=== PATIENT | female | born 1950 | race Caucasian/White ===

== ENCOUNTER 2023-09-29 14:47 | Outpatient (AMB) | payer OTHER, SELFPAY ==
--- NOTE | 2023-09-29 15:23 | MHC.OFFVIS ---
Intake Vital Signs 09/29/23 15:24 Height 5 ft 2 in Weight 181 lb BMI 33.1 BP 142/82 H Blood Pressure Location Lt brachial Position Sitting Respiration 15 Pulse 73 Pulse Source Pulse Oximeter Pulse Oximetry (%) 99 Oxygen Delivery Method Room Air Intake Visit Reasons: ENP-Headache - LVM Intake Note: Pt presents for new pt eval for headaches. Allergies lisinopril Allergy (Unknown, Verified 09/29/23 15:24) Anaphylaxis amlodipine Allergy (Intermediate, Uncoded 09/29/23 15:29) Swelling Medication List - Last Reconciled 09/29/23 by Nicole Howe, CLARA atorvastatin 20 mg PO DAILY clonidine 1 patch transdermal QWEEK levothyroxine 25 mcg PO DAILY magnesium oxide 400 mg PO BEDTIME 30 days melatonin 1 mg PO BEDTIME PRN nifedipine ER 30 mg PO DAILY pantoprazole 40 mg PO DAILY riboflavin (vitamin B2) 400 mg PO DAILY 30 days ubrogepant (Ubrelvy) 100 mg PO ONCE PRN 30 days MDD 200mg per day vit C,K-Jr-cdfkp-lutein-zeaxan 250-90-40-1 mg (PreserVision AREDS-2) 1 tab PO BID HPI HPI Comments History of Present Illness Details Right-handed 73-yr-old female presents for new pt evaluation of headache disorder, specifically worsening headache w/ visual aura. Pt is accompanied by her dtr. She states she has had headaches throughout her life. But has been having a new headache in the past couple of years w/o known precipitating cause. She feels she has 2 headaches- 1 that is d/t elevated BP which responds to her Clonidine patch and one that does not respond to anything . States these are different HAs but has difficulty differentiating the 2 HAs, other than the clonidine non-responsive MODI is a/w nausea and maybe is more severe. Headache questionnaire: Previous work-up? Head CT- no acute findings. Typical headache characteristics: Prodrome symptoms? none Aura? double vision, blurry vision, dark stars- not sure if occurs before or during the MODI. Lasts several minutes- varies a bit between HAs. Location, quality, characteristics? Throbbing, pressure pain holocranial- more so frontal, temples, retroorbital. Pain intensity? Moderate-Severe Associated symptoms? Photophobia, phonophobia, allodynia, nausea, dizziness, brain fog, activity intolerance. Focal weakness, Parethesias, Autonomic s/s? bilateral red watery eyes w/o weakness/facial droop. Postdrome? none Triggers? lack of sleep. weather changes Any positional, valsalva, exertional, sexual activity triggers? none Menstrual triggers? n/a Time of day? No specific time of day Duration? 1-2 days Frequency? 3-4 headache days per week How does headache impact your life? Cannot do her usual activities. Current acute medication use/interventions: Tylenol- ineffective Previous acute medication use: None Current preventative medication use: On Nifedipine Er 30mg for HTN, Clonidine patch helps the more moderate headaches Previous preventative medication use: None other Non-pharmacological interventions: Rest Other history of headache disorder? She does not remember what her headaches were like when she was younger. History of musculoskeletal disorders or injury? h/o back pain, neck pain/tightness History of concussion/head injury? none History of mood disorder? none History of sleep disorder? Can fall asleep, but then wakes up and cannot go back to sleep. May snore. History of respiratory disease? None History of CV disease? HTN, mild HLD, HF History of coagulopathy? None History of endocrine or metabolic disease? Hypothyroidism History of seizure? None History of /GI disorder? GERD. No current constipation. Has renal artery stenosis, h/o kidney stone. Exercise? doing cervical exercises everyday. Family planning? n/a Family history of migraine or other headache disorder? None PFSH Medical History (Updated 09/29/23 @ 21:18 by CLARA Waite) Constipation Bilateral carpal tunnel syndrome TTH (tension-type headache) Vitamin D deficiency Hypothyroidism Secondary hyperparathyroidism (of renal origin) Renal artery stenosis Renal cyst Osteopenia Mesenteric adenitis Medial epicondylitis of left elbow MDD (major depressive disorder) Lumbar radiculitis Iliotibial band syndrome of left side Insomnia CKD (chronic kidney disease), stage III CHF (congestive heart failure) HLD (hyperlipidemia) HTN (hypertension) Social History (Updated 09/29/23 @ 15:32 by Toña Mckeon CMA) Household Members: None Housing: Apartment Alcohol intake: never Patient Tobacco Use Status: Never used Tobacco Review of Systems Const Details: See scanned ROS form ENT Reports Normal hearing present Neuro Reports Normal hearing present Physical Exam Vital Signs: Last Vital Signs Pulse 73 09/29/23 15:24 Resp 15 09/29/23 15:24 BP 142/82 H 09/29/23 15:24 Pulse Ox 99 09/29/23 15:24 Oxygen Delivery Method Room Air 09/29/23 15:24 BMI result Body Mass Index 33.1 Const Orientation/consciousness: patient oriented x3 HEENT Other: Holocranial palpable scalp tenderness. Head: Yes normocephalic Eyes Pupils: Equal, round and reactive pupils present Resp Effort & Inspection: normal respiratory effort and able to speak in complete sentences Back/Spine/Pelvis Other: Bilateral posterior cervical tightness. Cervical ROM: not significant limitations Left Spurling: elicited base of left neck non-radiating pain Right Spurling: normal. Neuro Other: EOM- intact, but elicits ill feeling on convergence Diplopia in all visual perrin in both binoncular and bilateral monomocular vision, in both very close and far vision.. Diplopia described as overlapping diplopia (sees red tip of reflex hammer as enlarged/fuzzy). Red color perception intact. General: patient oriented x3 Cranial nerves: Yes Facial sensation intact/muscles of mastication intact, Yes Equal, round and reactive pupils present, Yes Normal accommodation reflex present, Yes Nystagmus not present, Yes Normal facial strength present, Yes Midline tongue present, Yes Symmetric palate elevation present, Yes Normal hearing present, Yes Ability to bilaterally rotate head present and Yes Ability to bilaterally elevate shoulders present Cognition (Neuro): normal cognition Gait exam (Neuro): Normal gait present Motor exam (neuro): 5/5 motor strength present throughout Deep tendon reflexes (DTR's): Right triceps reflex intensity grade: 2+, Left triceps reflex intensity grade: 2+, Rt Biceps (C5, C6): 2+, Left biceps reflex intensity grade: 2+, Right brachioradialis reflex intensity grade: 2+, Left brachioradialis reflex intensity grade: 2+, Right patellar reflex intensity grade: 2+ and Left patellar reflex intensity grade: 2+ Coordination: [id number] test normal Pupils: Normal pupillary reactivity/response: bilateral Psych Appearance: grossly normal Mental Status: mental status grossly normal Speech and movement: Normal speech and movement present Affect: normal affect Attitude: cooperative Thought process: Normal thought process present Assessment & Plan Assessment & Plan (1) Worsening headaches: Code(s): R51.9 - Headache, unspecified (2) Visual aura: Code(s): H53.9 - Unspecified visual disturbance (3) Diplopia: Code(s): H53.2 - Diplopia (4) Cervicalgia: Code(s): M54.2 - Cervicalgia (5) Migraine: Comment: probable Code(s): G43.909 - Migraine, unspecified, not intractable, without status migrainosus Plan P=As pt reports new type of mod-severe headache a/w visual aura, diplopia, autonomic s/s (yair red and watery eyes) w/ onset in pt's late 60s w/ CV risk factors (HTN, HLD, diastolic HF, CKD) in which headache can be (though not always) responsive to BP med, pt advised to undergo: Brain MRI w/wo- to assess pituitary and posterior fossa regions for secondary etiologies- ie mass, tumor, vascular abnormality. Head MRA wo and Neck MRA w/wo- to assess for secondary vascular etiologies- such as vascular stenosis, aneurysms. For overall headache management: It is important to optimize good self-care, including but not limited to maintaining a healthy diet, adequate fluid intake, adequate sleep, and engaging in regular physical activity. For headache triggers: Track headaches. For neck: Continue upper body/neck stretches, exercises. For acute headache treatment: Discussed importance of taking acute medications at the first sign of headache. As headache characteristics meet migraine phenotype, pt should trial Ubrogepant (Ubrelvy) 100mg tab, 1/2 - 1 tab (50-100mg) at onset of headache, may repeat in 2 hours. Max of 2 tabs (200mg) per 24 hours. May adjunct with OTC Tylenol 650mg q 4 hours Reviewed potential adverse effects of gepants, including but not limited to fatigue, nausea, dry mouth, constipation. Previous acute migraine medication trials: Tylenol- ineffective Acute migraine medication contraindications: Triptans- d/t HF, HTN, HLD For headache prevention medication: Discussed that preventative medications should be taken routinely as prescribed for best effect, it may take several weeks for full effect to take effect. Start Riboflavin 400mg qam Start Magnesium 400mg qhs Clonidine patch- pt feels is helpful. Previous migraine prevention medication trials: None other Migraine prevention medication contraindications: Caution w/ BBs d/t current alpha agonist and CCB tx Pt to follow-up in 3 months or sooner prn. Orders: Orders MR head/brain wo/w con Today E78.5 - Hyperlipidemia, unspecified, H53.2 - Diplopia, H53.9 - Unspecified visual disturbance, I10 - Essential (primary) hypertension, I50.9 - Heart failure, unspecified, N18.30 - Chronic kidney disease, stage 3 unspecified, R51.9 - Headache, unspecified MR angio head wo con Today E78.5 - Hyperlipidemia, unspecified, H53.2 - Diplopia, H53.9 - Unspecified visual disturbance, I10 - Essential (primary) hypertension, I50.9 - Heart failure, unspecified, N18.30 - Chronic kidney disease, stage 3 unspecified, R51.9 - Headache, unspecified MR angio neck wo/w con Today E78.5 - Hyperlipidemia, unspecified, H53.2 - Diplopia, H53.9 - Unspecified visual disturbance, I10 - Essential (primary) hypertension, I50.9 - Heart failure, unspecified, N18.30 - Chronic kidney disease, stage 3 unspecified, R51.9 - Headache, unspecified Medications: New riboflavin (vitamin B2) 400 mg PO DAILY 30 days 30 tabs 6RF ubrogepant (Ubrelvy) take at onset of migraine, may repeat in 2hrs (may take w/ Tylenol) 100 mg PO ONCE 30 days PRN 16 tabs 3RF migraine headache MDD 200mg per day magnesium oxide may hold for loose stools 400 mg PO BEDTIME 30 days 30 tabs 6RF Coding Level of Care Code New Pt Level 4 (99762) Diagnoses Worsening headaches R51.9 Visual aura H53.9 Diplopia H53.2 Cervicalgia M54.2 Migraine G43.909
[2023-09-29 15:24] VITALS: BP 142/82; PULSE 73; RESP 15; O2SAT 99; BMI 33.1
== END 2023-09-29 16:26 | disposition home or self-care (01) ==
PROVIDERS: PCP Physician Assistant; Visit Provider Nurse Practitioner Family
DX: R51.9 Headache, unspecified (principal); H53.9 Unspecified visual disturbance; H53.2 Diplopia; M54.2 Cervicalgia; G43.909 Migraine, unspecified, not intractable, without status migrainosus
CPT/HCPCS: 99204

== ENCOUNTER → 2023-09-29 14:47 | Outpatient (BNVA) | payer OTHER, SELFPAY | PROVIDERS: PCP Physician Assistant; Visit Provider Nurse Practitioner Family ==

== ENCOUNTER 2023-12-29 12:41 | Outpatient (AMB) | payer OTHER, SELFPAY ==
--- NOTE | 2023-12-29 12:46 | A.OFFVIS_ITS ---
Vital Signs 12/29/23 12:49 Height 5 ft 2 in Weight 176 lb BMI 32.2 BP 112/70 Blood Pressure Location Rt brachial Position Sitting Pulse 69 Pulse Source Pulse Oximeter Pulse Oximetry (%) 99 Oxygen Delivery Method Room Air Intake Visit Reasons: 3mon follow up-CONF Intake Note: Watson smithesents for 3 month follow up. no issues, she feels better Allergies lisinopril Allergy (Unknown, Verified 12/29/23 12:59) Anaphylaxis amlodipine Allergy (Intermediate, Uncoded 12/29/23 12:59) Swelling Medication List - Last Reconciled 01/11/24 by CLARA Waite atorvastatin 20 mg PO DAILY clonidine 1 patch transdermal QWEEK levothyroxine 25 mcg PO DAILY magnesium oxide 400 mg PO BEDTIME 30 days melatonin 1 mg PO BEDTIME PRN nifedipine ER 30 mg PO DAILY pantoprazole 40 mg PO DAILY riboflavin (vitamin B2) 400 mg PO DAILY 30 days ubrogepant (Ubrelvy) 100 mg PO ONCE PRN 30 days MDD 200mg per day vit C,P-Dn-bmyld-lutein-zeaxan 250-90-40-1 mg (PreserVision AREDS-2) 1 tab PO BID HPI Comments Details: 73-yr-old female presents for f/u visit. Pt denies any significant interval medical changes. Pt reports she is doing better overall. Interval workup: 10/15/13, brain MRI without contrast showed no acute findings. Scattered T2/FLAIR hyperintense foci in the white matter, nonspecific likely reflecting chronic small-vessel disease. 10/15/23, C-spine MRI without showed multilevel degenerative changes. With moderate to severe left and severe right neural foraminal narrowing at C6-C7 MRA head and neck: Not completed Pt reports difficulty sleeping. Sleeps only from 11pm until 2:30am and then cannot sleep. She is prone to stay in bed a lot. Does not fidel TV or her phone in bed. Baseline headache characteristics: Aura: double vision, blurry vision, dark stars- not sure if occurs before or during the MODI. Lasts several minutes- varies a bit between HAs. Moderate-Severe Throbbing, pressure pain holocranial- more so frontal, temples, retroorbital A/W Photophobia, phonophobia, allodynia, nausea, dizziness, brain fog, activity intolerance, bilateral red watery eyes w/o weakness/facial droop. PFSH Medical History (Updated 01/16/24 @ 17:18 by CLARA Waite) Constipation Bilateral carpal tunnel syndrome TTH (tension-type headache) Vitamin D deficiency Hypothyroidism Secondary hyperparathyroidism (of renal origin) Renal artery stenosis Renal cyst Osteopenia Mesenteric adenitis Medial epicondylitis of left elbow MDD (major depressive disorder) Lumbar radiculitis Iliotibial band syndrome of left side Insomnia CKD (chronic kidney disease), stage III CHF (congestive heart failure) HLD (hyperlipidemia) HTN (hypertension) Social History Household Members: None Housing: Apartment Alcohol intake: never Patient Tobacco Use Status: Never used Tobacco Physical Exam Vital Signs: Last Vital Signs Pulse 69 12/29/23 12:49 BP 112/70 12/29/23 12:49 Pulse Ox 99 12/29/23 12:49 Oxygen Delivery Method Room Air 12/29/23 12:49 BMI result Body Mass Index 32.2 Const General: cooperative and no acute distress Orientation/consciousness: patient oriented x3 Resp Effort & Inspection: normal respiratory effort and able to speak in complete sentences Neuro General: patient oriented x3 Cranial nerves: Yes CN's II-XII intact bilaterally Cognition (Neuro): normal cognition Psych Appearance: grossly normal Mental Status: mental status grossly normal Speech and movement: Normal speech and movement present Affect: normal affect Attitude: cooperative Assessment & Plan Assessment & Plan (1) Migraine: Comment: probable Code(s): G43.909 - Migraine, unspecified, not intractable, without status migrainosus Category: Medical (2) Cervicalgia: Code(s): M54.2 - Cervicalgia Category: Medical (3) Sleep difficulties: Code(s): G47.9 - Sleep disorder, unspecified Category: Medical Plan Reviewed Brain MRI w/o- no acute findings to explain patient's previously worsening headaches. Mild chronic small-vessel disease. Head MRA wo and Neck MRA w/wo- has not yet been completed, however advised patient to undergo angiogram to assess for secondary vascular etiologies- such as vascular stenosis, aneurysms- as patient already does have known renal artery stenosis. ? For overall headache management: Optimize good self-care, including but not limited to maintaining a healthy diet, adequate fluid intake, adequate sleep, and engaging in regular physical activity. Track headaches. For sleep: Discussed strategies to optimize sleep hygiene. Minimize amount of time spent i n bed during awake hours. Go to bed only when sleepy. For neck: Continue upper body/neck stretches, exercises. ? For acute headache treatment: Ubrogepant (Ubrelvy) 100mg tab, 1/2 - 1 tab (50-100mg) at onset of headache, may repeat in 2 hours. Max of 2 tabs (200mg) per 24 hours. May adjunct with OTC Tylenol 650mg q 4 hours Previous acute migraine medication trials: Tylenol- ineffective Acute migraine medication contraindications: Triptans- d/t HF, HTN, HLD ? For headache prevention medication: Riboflavin 400mg qam Magnesium 400mg qhs Clonidine patch- pt feels is helpful. Previous migraine prevention medication trials: None other Migraine prevention medication contraindications: Caution w/ BBs d/t current alpha agonist and CCB tx ? ? Pt to follow-up in 6 months or sooner prn.
[2023-12-29 12:49] VITALS: BP 112/70; PULSE 69; O2SAT 99; BMI 32.2
== END 2023-12-29 13:41 | disposition home or self-care (01) ==
PROVIDERS: PCP Physician Assistant; Visit Provider Nurse Practitioner Family
DX: G43.909 Migraine, unspecified, not intractable, without status migrainosus (principal); M54.2 Cervicalgia; G47.9 Sleep disorder, unspecified
CPT/HCPCS: 99214

== ENCOUNTER → 2023-12-29 12:41 | Outpatient (BNVA) | payer OTHER, SELFPAY | PROVIDERS: PCP Physician Assistant; Visit Provider Nurse Practitioner Family ==

== ENCOUNTER 2024-08-03 12:55 | Outpatient (AMB) | payer OTHER, SELFPAY ==
[2024-08-03 13:03] VITALS: BP 146/78; PULSE 70; O2SAT 97
--- NOTE | 2024-08-03 13:03 | MHC.OFFVIS ---
Vital Signs 08/03/24 13:03 Height 5 ft 2 in BP 146/78 H Blood Pressure Location Lt brachial Position Sitting Pulse 70 Pulse Source Pulse Oximeter Pulse Oximetry (%) 97 Oxygen Delivery Method Room Air Intake Visit Reasons: Follow up [employer] Analyst Required: No Manager Agricultural: Manager Agricultural Present Accompanied by: Daughter Allergies lisinopril Allergy (Unknown, Verified 08/03/24 13:11) Anaphylaxis amlodipine Allergy (Intermediate, Uncoded 12/29/23 12:59) Swelling Medication List - Last Reconciled 08/03/24 by CLARA Waite atorvastatin 20 mg PO DAILY clonidine 1 patch transdermal QWEEK diclofenac sodium 1% (Arthritis Pain (diclofenac)) 4 grams topical QID 30 days levothyroxine 25 mcg PO DAILY magnesium oxide 400 mg PO BEDTIME 30 days melatonin 1 mg PO BEDTIME PRN nifedipine ER 30 mg PO DAILY pantoprazole 40 mg PO DAILY riboflavin (vitamin B2) 400 mg PO DAILY 30 days ubrogepant (Ubrelvy) 100 mg PO ONCE PRN 30 days MDD 200mg per day Do you need a note to return to daycare/school/sports/work: No HPI Comments Details: 73-yr-old female presents for f/u visit. Pt denies any significant interval medical changes. Pt reports she is stable. She states her migraines are stable. Having 3-5 migraine attacks per month. Ubrelvy is effective. Baseline headache characteristics: Aura: double vision, blurry vision, dark stars- not sure if occurs before or during the MODI. Lasts several minutes- varies a bit between HAs. Moderate-Severe Throbbing, pressure pain holocranial- more so frontal, temples, retroorbital A/W Photophobia, phonophobia, allodynia, nausea, dizziness, brain fog, activity intolerance, bilateral red watery eyes w/o weakness/facial droop. Her neck is still sore. She is doing neck stretches and ROM which help some. Used to have a prn medication which helped some, but she would be more interested in trying something topical. Continues to have sleep difficulties. 05/22/2024, MRA Head W/O Contrast, MRA Neck W/ Contrast IMPRESSION: Normal MRA of the head. Bilateral internal carotid arteries show no significant stenosis by NASCET criteria. The vertebral arteries are within normal limits. Previous work-up: 10/15/13, brain MRI without contrast showed no acute findings. Scattered T2/FLAIR hyperintense foci in the white matter, nonspecific likely reflecting chronic small-vessel disease. 10/15/23, C-spine MRI without showed multilevel degenerative changes. With moderate to severe left and severe right neural foraminal narrowing at C6-C7 MRA head and neck: Not completed ON LICENSE OF [facility] Medical History Constipation Bilateral carpal tunnel syndrome TTH (tension-type headache) Vitamin D deficiency Hypothyroidism Secondary hyperparathyroidism (of renal origin) Renal artery stenosis Renal cyst Osteopenia Mesenteric adenitis Medial epicondylitis of left elbow MDD (major depressive disorder) Lumbar radiculitis Iliotibial band syndrome of left side Insomnia CKD (chronic kidney disease), stage III CHF (congestive heart failure) HLD (hyperlipidemia) HTN (hypertension) Social History Household Members: None Housing: Apartment Alcohol intake: never Patient Tobacco Use Status: Never used Tobacco Physical Exam Vital Signs: Last Vital Signs Pulse 70 08/03/24 13:03 BP 146/78 H 08/03/24 13:03 Pulse Ox 97 08/03/24 13:03 Oxygen Delivery Method Room Air 08/03/24 13:03 Const General: cooperative and no acute distress Orientation/consciousness: patient oriented x3 Resp Effort & Inspection: normal respiratory effort and able to speak in complete sentences Neuro Other: Bilateral posterior cervical and upper trap tightness. Cervical ROM: limited General: patient oriented x3 Cranial nerves: Yes CN's II-XII intact bilaterally Cognition (Neuro): normal cognition Psych Appearance: grossly normal Mental Status: mental status grossly normal Speech and movement: Normal speech and movement present Affect: normal affect Attitude: cooperative Assessment & Plan Assessment & Plan (1) Migraine: Comment: probable Code(s): G43.909 - Migraine, unspecified, not intractable, without status migrainosus Category: Medical (2) Cervicalgia: Code(s): M54.2 - Cervicalgia Category: Medical (3) Sleep difficulties: Code(s): G47.9 - Sleep disorder, unspecified Category: Medical Plan Previous Brain MRI w/o- no acute findings to explain patient's previously worsening headaches. Mild chronic small-vessel disease. Reviewed Head MRA wo and Neck MRA w/wo- normal ? For overall headache management: Optimize good self-care, including but not limited to maintaining a healthy diet, adequate fluid intake, adequate sleep, and engaging in regular physical activity. Track headaches. For sleep: Continue to optimize sleep hygiene. Minimize amount of time spent in bed during awake hours. Go to bed only when sleepy. For cervicalgia: Continue upper body/neck stretches, exercises. Trial diclofenac 1% gel, apply sparingly to neck and upper traps QID prn. ? For acute headache treatment: Ubrogepant (Ubrelvy) 100mg tab, 1/2 - 1 tab (50-100mg) at onset of headache, may repeat in 2 hours. Max of 2 tabs (200mg) per 24 hours. May adjunct with OTC Tylenol 650mg q 4 hours Previous acute migraine medication trials: Tylenol- ineffective Acute migraine medication contraindications: Triptans- d/t HF, HTN, HLD ? For headache prevention medication: Riboflavin 400mg qam Magnesium 200mg qhs Clonidine patch- pt feels is helpful. Previous migraine prevention medication trials: None other Migraine prevention medication contraindications: Caution w/ BBs d/t current alpha agonist and CCB tx ? ? Pt to follow-up in 6 months or sooner prn. Medications: New diclofenac sodium 1% (Arthritis Pain (diclofenac)) apply to bilateral neck and upper back 4 grams topical QID 30 days 200 grams 6RF M54.2 - Cervicalgia Coding Level of Care Code Est Pt Level 4 (43955) Diagnoses Migraine G43.909 Cervicalgia M54.2 Sleep difficulties G47.9
== END 2024-08-03 13:37 | disposition home or self-care (01) ==
LOC: HO.HSMS 12:56
PROVIDERS: PCP Physician Assistant; Visit Provider Nurse Practitioner Family
DX: G43.909 Migraine, unspecified, not intractable, without status migrainosus (principal); M54.2 Cervicalgia; G47.9 Sleep disorder, unspecified
CPT/HCPCS: 99214